=== PATIENT | female | born 1970 | race Caucasian/White ===

== ENCOUNTER 2021-10-09 11:00 | Outpatient (CLI) | payer BC, SELFPAY ==
--- OUTSIDE RECORDS SUMMARY | 2021-09-05 10:29 | XMS_ITS | Continuity of Care Document ---
:1970 Author Care Team Providers Name Role Phone PCP Primary Care Physician Unavailable MD Casey Turner Attending Physician Allergies, Adverse Reactions, Alerts Allergen Type Severity Reaction Last Updated Verified Status Amoxicillin Adverse Severe liver shut November Yes Active Reaction down and was 2019 hopstial Clavulanate Adverse Severe liver shut November Yes Active Reaction down and was 2019 hopstial Sulfa drugs Allergy Moderate large boils November Yes Active 2019 Social History Smoking Status Status Start Date End Date Date of Observat ion Never smoked tobacco November 132019 (finding) 2:07pm Observation Status Observation Response Date of Response Nonsmoker August 05, 2018 9:20a m Does not use illicit drugs August 05 9 9:20am Alcohol ingestion, 1-4 August 05, 2018 9: 20am drinks/week January 10, 2019 8 :02am Tattoo January 10, 2019 9 :28am Additional Data Assigned Sex Female Problems Active Problems Medical Problem Onset Date Status Abnormal Pap Smear February 22, 2012 Resolved Depression February 22, 2012 Active Morbid obesity February 22, 2012 Active Vitamin D deficiency February 22, 2012 Active 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 Dermoid cyst of left ovary Active History of chlamydia Active History of anemia Active Anxiety disorder Active History of PID Active Molluscum contagiosum Active Well woman exam with routine Active gynecological exam High triglycerides Active Hx of cholecystectomy February 22, 2012 Active History of endometrial ablation 2010 Active History of reduction mammoplasty 2003 Active History of loop electrical excision 1996 Acti ve procedure (LEEP) History of vaginal delivery Active History of esophagogastroduodenoscopy 2013 Ac tive (EGD) History of abdominoplasty 2003 Active Medications Medication Status Dose Units Route Directions Qty Days Start End Ins tructions Date Date Calcium Active 1 TAB PO Twice A Day 60 December Carbonate-Vit , sarmiento D 2018 (Caltrate 600 8:38am Plus/Vit D) 1 Tab TAB Cholecalcifer Active 1000 UNIT PO Daily December ol (Vitamin , D) 1,000 Unit 2018 TAB 4:25pm Multivitamins Active 1 TAB PO Daily 100 (Multivitamin /Minerals) TAB Alprazolam Disconti 0.25 MG PO Daily as 10 Decemb (Xanax) 0.25 nued needed er er Mg TAB , 2015 1:46pm 9:46am Bupropion Hcl Disconti 150 MG PO Daily September (Bupropion nued , , Hcl Xl (2017 Hr)) 150 Mg 1:58pm 8:59am TABCR Bupropion Hcl Disconti 300 MG PO Daily August (Bupropion nued , er Hcl Xl (2013, Hr)) 300 Mg 11:54am 2013 TABCR 8:58am Bupropion Hcl Disconti 150 MG PO Daily July (Wellbutrin nued , , Xl) 150 Mg 2013 2013 TAB 9:36am 11:54a m Bupropion Hcl Disconti 150 MG PO Daily July (Wellbutrin nued , er Xl) 150 Mg 2009 04, TABCR 9:17am 2010 9:48am Bupropion Hcl Disconti 300 MG PO Daily July (Wellbutrin nued 20th, er Xl) 150 Mg 2009 04, TABCR 9:17am 2010 9:48am Cholecalcifer Disconti 5000 UNIT PO Daily 100 ol (Vitamin nued er D) 5,000 Unit , 2015 9:46am Diphtheria/Te Disconti 0.5 ML IM Once 1 Decembe Decemb tanus/Acell nued r , er Pertussis 2015, (Adacel) 0.5 9:59am 2015 Ml INJ 10:49a m Ergocalcifero Disconti 38860 UNIT PO Once Weekly O ctobe l (Vitamin D) nued er r 50,000 Unit , CAP 2018 2018 6:41am 8:20am Ergocalcifero Disconti 57170 UNIT PO Once Weekly July tem l (Vitamin D) nued , naren 50,000 Unit 2018, CAP 9:48am 2018 6:41am Ergocalcifero Disconti 06965 UNT PO Weekly July l (Vitamin D) nued , er 50,000 Unt 2009 04, CAP 8:14am 2010 9:48am Influenza Disconti 0.5 ML IM Once Virus Vaccine nued er naren Split , , (Fluzone 2015 2015 Quadrivalent 9:04am 9:37am (3 Yrs And Older)2015- ) 1 Inj INJ Multivitamins Disconti 1 TAB PO Daily July (Multivitamin nued , /Minerals) 2018 TAB 8:59am Nitrofurantoi Disconti 100 MG PO Daily September n nued , er Macrocrystals 2009 04, (Macrobid 100 3:19pm 2010 Mg) 100 Mg 9:48am CAP No Home Meds Disconti August 10:51a m Paroxetine Disconti 30 MG PO Daily March Hcl (Paxil) nued , , 20 Mg TAB 2018 2018 4:48pm 8:59am Paroxetine Disconti 30 MG PO Daily September Hcl (Paxil) nued , y 20 Mg TAB 2017, 1:58pm 2018 4:48pm Paroxetine Disconti 20 MG PO Daily 60 September Hcl (Paxil) nued r , 18th, 20 Mg TAB 2015 2017 10:05am 1:58pm Pentosan Disconti 100 MG PO Daily September Polysulfate nued , er Sodium 2009 04, ([place]) 100 10:46am 2010 Mg CAP 9:48am Pentosan Disconti 100 MG PO Three Times September Polysulfate nued A Day , , Sodium 2009 2009 ([place]miron) 100 8:38am 3:19pm Mg CAP Podofilox Disconti 1 CHANDRIKA TOP Twice A Day 3.5 December m APPLY FOR 3 (Condylox) nued , DAYS, THE N 4 0.5 % GEL 2018, DAYS OFF, 9:35am 2019 REPEAT UP TO 10:35a 4 TIMES m Sertraline Disconti 50 MG PO Daily 13 April Septem Hcl (Zoloft) nued 10th, naren 50 Mg TAB 2019, 8:16am 2019 10:35a m Sertraline Disconti 50 MG PO Daily 60 Decembe Januar Hcl (Zoloft) nued r 11, y 50 Mg TAB 2018 12, 10:25am 2019 8:16am Sertraline Disconti 50 MG PO Daily 60 December Decemb Hcl (Zoloft) nued , er 50 Mg TAB 2019 01, 8:51am 2018 10:25a m Sertraline Disconti 100 MG PO Daily 30 Novem Decemb Hcl nued r 10th, er 2015, 9:52am 2015 9:46am Sertraline Disconti 75 MG PO Daily 90 Novemb Hcl nued er er , 2015 9:22am 9:52am Sertraline Disconti 50 MG PO Daily 90 Septem 25m g daily x Hcl nued er naren 3 days, then , 50mg daily 2015 2015 1:46pm 9:22am Trazodone Hcl Disconti 50 MG PO Bedtime 30 Decem b nued er er , 2015 1:46pm 9:46am Venlafaxine Disconti 75 MG PO Daily 90 Decembe Septem Hcl (Effexor nued r 18, naren Xr) 75 Mg CAP 2014, 1:20pm 2015 1:24pm Venlafaxine Disconti 150 MG PO Daily 13 April Decemb Hcl nued , er (Venlafaxine 2014, Hcl Er) 150 11:58am 2015 Mg CAPCR 12:59p m Venlafaxine Disconti 37.5 MG PO Daily 60 Novembe Januar 37 .5mg daily Hcl (Effexor nued r , y x 1 w [place], Xr) 37.5 Mg 2013, then 75m g CAPCR 9:22am 2014 daily 11:58a m Immunizations Immunization Event Date Not Given Dose Umbrella Cutter Lot Vac cine Reason Number Number Informatio n Statement (VIS) Deta il Influenza November 07, 2008 Influenza February 122014 Influenza November 15 SANOFI 2015 Tdap April 14 (adolescent/adul 2006 t) Tdap February 13 SANOFI (adolescent/adul 2015 t) Advance Directives Advance Directive Response Recorded Date/Time Does Pt have Health Care No March 05, 2015 1:15pm Directive? Has patient completed a N - Given today November 30, 2019 2:07pm Health Care Directive? Insurance Providers Guarantor Yanira Wheeler Address [address] [address] [facility] [id number] Contact Info. Home Phone: Payer Policy Id Coverage Subscriber's Subscriber Effective Expira tion Id Name Id Date Date [facility] [id number] Yanira Wheeler 2011 Plan of Treatment Future Tests Future scheduled test information is unavailable Pending Tests Pending diagnostic test information is unavailable Future Visits Future appointment information is unavailable Referrals to Other Providers Reason for Referral Start Provider Provider Contact Provider Referral Date Information Address ARIA Shannon MA, LP Phone [place] [phone] [place] [address] Patient has previously seen her before and will call to schedule an appt with her at her request. Pt would like a Montse Spicer M MD [place] appt with Dr Spicer. MICHAEL Shannon MA, LPRIEN Phone [place] [phone] [place] [address] Patient has previously seen her before and will call to schedule an appt with her at her request. Pt would like Montse Duvall M MD [place] appt with Dr Spicer. Future Procedures Procedure Name Scheduled Date CLARA Bilat Mammo Scrn CLARA Bilat Mammo Scrn Future Medications Future medication information is unavailable Patient Instructions Patient instructions are unavailable
--- NOTE | 2021-10-09 11:30 | CRLHL7_ITS ---
For Patients: As a result of the Century Cures Act, medical imaging exams and procedure reports are released immediately into your electronic medical record. You may view this report before your referring provider. If you have questions, please contact your health care provider. BILATERAL MAMMOGRAM WITH COMPUTER-AIDED DETECTION AND TOMOSYNTHESIS TECHNIQUE: CC and MLO views were obtained. These mammographic images have been obtained using full-field digital technique. These mammographic images were interpreted with the benefit of computer-aided detection. Breast tomosynthesis was used in this interpretation. COMPARISON FILM: 01/13/19, , 03/01/15. FINDINGS: The breasts are almost entirely fatty. IMPRESSION: There is no radiographic evidence for malignancy. ASSESSMENT: BI-RADS Category 1: Negative RECOMMENDATION: Routine screening mammogram in 1 year. A lay language report of this examination will be provided to the patient. RIAZ GUY M.D. Diagnostic/Nuclear Medicine Radiologist [email or web address] Transcribed: 4:[address]/Dictated by: Riaz Guy MD @ 10/09/2021 11:56:00 AM (Electronically Signed)
== END 2021-10-09 11:01 | disposition home or self-care (01) ==
LOC: MAMMO 11:04
PROVIDERS: Visit Provider Obstetrics & Gynecology
DX: Z12.31 Encounter for screening mammogram for malignant neoplasm of breast (principal)
CPT/HCPCS: 77063; 77067

== ENCOUNTER 2021-10-09 12:53 | Outpatient (CLI) | payer BC, SELFPAY ==
[2021-10-09 13:22] LABS: Hematocrit 44.1 % (33.0-51.0); Hemoglobin* 14.5 gm/dL (12.0-16.0); Mean Corpuscular HGB Conc 33 gm/dL (32-36); Mean Corpuscular Hemoglobin 29 pg (26-34); Mean Corpuscular Volume 89 fL (80-100); Platelet Count* 238 K/uL (140-440); Red Blood Count 4.96 m/uL (4.00-5.20); White Blood Count* 8.76 K/uL (4.50-11.00)
[2021-10-09 13:24] LABS: Slide Review Reflex No
[2021-10-09 13:27] LABS: Hemoglobin A1C* 5.3 % (0-5.6)
[2021-10-09 21:38] LABS: Cholesterol* 164 mg/dL (90-199); Triglycerides* 137 mg/dL (40-149)
[2021-10-09 21:39] LABS: HDL Cholesterol* 60 mg/dL (>=50); LDL Cholesterol Calculated 77 mg/dL (<100)
[2021-10-09 21:54] LABS: Vitamin D 25 Hydroxy* 28 ng/mL (30-80)
[2021-10-09 21:59] LABS: TSH With Reflex to FT4* 0.725 uIU/mL (0.270-4.200)
== END 2021-10-09 12:54 | disposition home or self-care (01) ==
PROVIDERS: PCP Family Medicine; Visit Provider Registered Nurse
DX: Z01.419 Encounter for gynecological examination (general) (routine) without abnormal findings (principal); R53.83 Other fatigue; R63.5 Abnormal weight gain
CPT/HCPCS: 80061; 82306; 83036; 84443; 85027